=== PATIENT | male | born 1975 | race Two or more races ===

== ENCOUNTER 2017-04-06 04:02 | Emergency (ER) | payer OTHER ==
--- NOTE | ~2017-04-06 | CT71 ---
[facility] A Service of [facility] & [facility] RADIOLOGY TEXT RESULTS PATIENT: LILY OROPEZA LOCATION: [facility] : 73 UNIT #: [id number] AGE: [address]: George Madden MD SEX: M ORDER DR: [id number] [facility]. [place], [place] [address] [id number] E MR#: [id number] Acc #: [id number] NAME: LILY OROPEZA : 1975 SEX: M STUDY DATE/TIME: 04/06/2017 3:41 UNIT: [facility] ROOM: STUDY DESCRIPTION: CT Head Wo Contrast Attending Physician: George Madden M.D. Ordering Physician: George Madden M.D. Primary Care Physician: No Primary Care Physician MEDICAL IMAGING REPORT This report is preliminary unless electronic signature is present EXAM CT head HISTORY 41-year-old male headache since 1700 hours yesterday. TECHNIQUE This CT exam was performed with one or more of the following radiation dose reduction techniques: automatic control, adjustment of mA and/or kV according to patient size, and iterative reconstruction. FINDINGS Axial noncontrast images were obtained from the skull base to the vertex. Ventricular size and configuration are normal. There is no evidence of acute infarct or hemorrhage. There are no extra-axial fluid collections. No mass lesion or mass effect is seen. There are no skull fractures. IMPRESSION Normal noncontrast head CT. Dictated by... Sara Bryan M.D. THIS IS AN ELECTRONICALLY VERIFIED REPORT Sara Bryan M.D. at 04/06/2017 5:56 AM ZENIA/james TD: 04/06/2017 05:23 JOB #: [id number] MEDICAL IMAGING REPORT Page 1 of 1 COPY
--- NOTE | ~2017-04-06 | EKG ---
PATIENT: LILY OROPEZA UNIT #: [id number] Ventricular Rate: 78 BPM Atrial Rate: 78 BPM P-R Interval: 166 ms QRS Duration: 116 ms Q-T Interval: 380 ms QTC Calculation(Bezet): 433 ms P Mcdaniel: 48 degrees Calculated R Mcdaniel: -43 degrees Calculated T Mcdaniel: 54 degrees Diagnosis Line: Normal sinus rhythm Diagnosis Line: Left axis deviation Diagnosis Line: Incomplete right bundle branch block Diagnosis Line: Abnormal ECG Diagnosis Line: No previous ECGs available Diagnosis Line: Confirmed by SHARDA GARCIA MD ([id number]) on 04/06/2017 Diagnosis Line: 4:11:20 PM INTERPRETING MD: RADHA PLUMMER
[2017-04-06 03:17] LABS: BASOPHIL# 0.1 X10e3 (0-0.3); BASOPHIL% 0.9 % (0-2.5); EOSINOPHIL# 0.1 X10e3 (0-0.7); EOSINOPHIL% 1.6 % (0.0-7.0); HEMATOCRIT 42.8 % (38.0-50.0); HEMOGLOBIN 14.5 gm/dL (13.0-16.0); LYMPHOCYTE# 2.8 X10e3 (1.0-3.5); LYMPHOCYTE% 30.2 % (17.0-45.0); MEAN CELL VOLUME 85.9 FL (83-96); MEAN CORPUSCULAR HGB CONC 33.8 g/dL (30-36); MEAN PLATELET VOLUME 8.2 FL (6.5-11.5); MONOCYTE# 0.7 X10e3 (0-1.0); MONOCYTE% 7.9 % (3.0-12.0); NEUTROPHIL# 5.5 X10e3 (1.5-7.1); NEUTROPHIL% 59.4 % (40-75); PLATELET COUNT 279 X10e3 (140-420); RED BLOOD COUNT 4.98 X10e (3.90-5.60); WHITE BLOOD COUNT 9.3 X10e3 (4.0-10.5)
[2017-04-06 03:27] LABS: DIFF IND NO
[2017-04-06 03:27] LABS: POC - CKMB 1.1 ng/mL (0.0-7.9); POC - TROPONIN <0.05 ng/mL (<=0.05)
[2017-04-06 03:44] LABS: BUN/CREATININE RATIO 22.22; CALCIUM SERUM 9.1 mg/dL (8.4-10.2); CREATININE SERUM 0.9 mg/dL (0.6-1.4); POTASSIUM 3.5 mmol/L (3.5-5.1)
[~2017-04-06 04:02] MED LIST: BACITRACIN3.5 GM OP; LISINOPRIL5 MG PO; VICODIN 5/1 TAB 5/50; VICODIN 5/1 TAB 5/50 PO
== END 2017-04-06 04:40 | disposition home or self-care (01) ==
LOC: CED 04:02
PROVIDERS: Emergency Medicine
DX: I10 Essential (primary) hypertension (principal); F17.200 Nicotine dependence, unspecified, uncomplicated
CPT/HCPCS: 36415; 70450; 80048; 82553; 84484; 85025; 93005; 96374; 99284; J1885